=== PATIENT | female | born 1965 | race Caucasian/White ===

== ENCOUNTER 2019-09-29 10:21 | Emergency (ER) | payer OTHER ==
[~2019-09-29] VITALS: Ht 152.4 cm; Wt 49.9 kg
[2019-09-29] MEDS ORDERED: FOSAMAX70 MG PO (10:34)
== END 2019-09-29 12:57 | disposition home or self-care (01) ==
LOC: ER 10:21
DX: S30.0XXA Contusion of lower back and pelvis, initial encounter (principal); S70.02XA Contusion of left hip, initial encounter; W18.39XA Other fall on same level, initial encounter; Y93.89 Activity, other specified; Y92.89 Other specified places as the place of occurrence of the external cause; Y99.8 Other external cause status